=== PATIENT | female | born 1975 | race Caucasian/White ===

== ENCOUNTER 2017-09-05 22:38 | Inpatient (IN) | payer OTHER ==
[~2017-09-05] VITALS: Ht 157.5 cm; Wt 81.6 kg
[2017-09-05] MEDS ORDERED: PRENATAL TABLE1 EAC1 PO (23:41)
[2017-09-05] MEDS ORDERED: FOLIC ACID20 MG PO (23:41)
== END 2017-09-08 09:45 | DRG 780 ==
LOC: LDR 22:38 → OB/GYN 09-07 12:11
PROC: BY4FZZZ Ultrasonography of Third Trimester, Single Fetus (ICD-10-PCS; principal; 2017-09-06)
PROC: 4A1HXCZ Monitoring of Products of Conception, Cardiac Rate, External Approach (ICD-10-PCS; 2017-09-06)
DX: O47.03 False labor before 37 completed weeks of gestation, third trimester (principal); Z34.83 Encounter for supervision of other normal pregnancy, third trimester

== ENCOUNTER 2017-09-21 00:13 | Inpatient (IN) | payer OTHER ==
[~2017-09-21] VITALS: Ht 157.5 cm; Wt 3.6 kg
[~2017-09-21 00:13] MED LIST: FOLIC ACID20 MG PO; PRENATAL TABLE1 EAC1 PO
== END 2017-09-24 11:58 | DRG 766 ==
LOC: SURG-SUITE 00:13 → LDR 00:13 → SURG-SUITE 02:50
PROVIDERS: Obstetrics & Gynecology Maternal & Fetal Medicine
PROC: 4A033R1 Measurement of Arterial Saturation, Peripheral, Percutaneous Approach (ICD-10-PCS; 2017-09-21)
PROC: 4A1HXCZ Monitoring of Products of Conception, Cardiac Rate, External Approach (ICD-10-PCS; 2017-09-21)
PROC: 10D00Z1 Extraction of Products of Conception, Low, Open Approach (ICD-10-PCS; principal; 2017-09-21 07:00)
DX: O99.02 Anemia complicating childbirth (principal); O09.523 Supervision of elderly multigravida, third trimester; Z3A.37 37 weeks gestation of pregnancy; Z37.0 Single live birth